=== PATIENT | male | born 1990 | race Two or more races ===

== ENCOUNTER 2024-11-21 09:25 | Day surgery (SDC) | payer BC, SELFPAY ==
[2024-11-15 09:50] VITALS: BMI 28.5
[2024-11-15 10:54] LABS: Basophils % (Auto) 1 % (0-2.5); Eosinophils # (Auto) 0.1 Thou/mm3 (0.0-0.5); Eosinophils % (Auto) 1 % (0-10); Hematocrit 41.4 % (41.0-53.0); Hemoglobin 14.6 g/dL (13.5-16.0); Immature Granulocytes % (Auto) 0 % (0-0); Immature Granulocytes Auto 0.02 Thou/mm3 (0.00-0.00); Lymphocytes % (Auto) 25 % (10-50); Mean Corpuscular HGB Conc 35.3 g/dl (31.0-37.0); Mean Corpuscular Volume 88 fL (80-100); Monocytes # (Auto) 0.9 Thou/mm3 (0.0-0.8); Monocytes % (Auto) 12 % (0-12); Neutrophils # (Auto) 4.9 Thou/mm3 (1.8-7.7); Neutrophils % (Auto) 62 % (37-80); Nucleated Red Blood Cell % 0 /100 WBC (0); Platelet Count 305 Thou/mm3 (140-440); RDW Standard Deviation 39.1 fL (35.1-43.9); Red Blood Count 4.71 Miln/mm3 (4.50-5.90); White Blood Count 7.9 Thou/mm3 (3.8-10.6)
[2024-11-15 11:08] LABS: Anion Gap 8 (7-16); BUN/Creatinine Ratio 10 Ratio (12-20); Blood Urea Nitrogen 10 mg/dL (9-23); Calcium 10.2 mg/dL (8.3-10.6); Carbon Dioxide 28.3 mMol/L (20.0-31.0); Chloride 106 mMol/L (98-107); Estimated Creatinine Clearance 118.7 mL/min (>60); Glucose 104 mg/dL (74-106); Osmolality,Calculated 282 (275-295); Potassium 4.3 mMol/L (3.4-5.1); Sodium 142 mMol/L (136-145); eGFR > 60 See Note
--- NOTE | 2024-11-20 14:27 | SUR.PREOP ---
Pt notified to come in at 1000 tomorrow for surgery.
[2024-11-21] VITALS (7 sets, daily range): BP systolic 108–146; BP diastolic 71–99; PULSE 55–84; RESP 10–17; TEMP 36.3–37.1; O2SAT 96–99; BMI 28.0
[2024-11-21] MEDS: RINGERS LACTATED 1000 ML 1,000 ML 20 ML IV (10:29)
--- NOTE | 2024-11-21 10:45 | CHAP ---
Visited with patient and spouse and gave encouragement and prayer.
--- NOTE | 2024-11-21 12:42 | SUR.PHASEI ---
pt received to [facility]. oral airway removed by dr sánchez on arrival. vss. breathing even and unlabored. dressing cdi. arousable with stimulation. denies pain and nausea. report from dr sánchez and nurse concepcion.
--- NOTE | 2024-11-21 13:00 | SUR.PHASEI ---
assumed care of pt at this time. pt awake and alert, breathing unlabored on room air. v/s stable. pt dressing to abd cdi.
--- NOTE | 2024-11-21 13:00 | SUR.PHASEI ---
report to nurse ana. pt awake alert, oriented and eating ice chips. dressing remains cdi. vss. breathing even and unlabored.
--- NOTE | 2024-11-21 13:18 | SUR.PHASEII ---
pt able to tolerate oral fluids without difficulty swallowing or nausea/vomiting.
--- NOTE | 2024-11-21 13:24 | ESOP_ITS ---
Date of Procedure 11/21/24 Pre Op Diagnosis Incarcerated left inguinal hernia Post Op Diagnosis Incarcerated indirect left inguinal hernia Procedure Left inguinal hernia repair with mesh Findings Patient was noted to have an indirect left inguinal hernia with incarcerated omentum Procedure Description Patient brought into the operating room in supine position. After administration of general endotracheal anesthesia, patient's left groin was shaved, prepped and draped in standard surgical manner. The left inguinal crease was anesthetized with half percent Marcaine. An approximately 6 cm incision was made and dissection was carried to subcutaneous tissue. The Lily's fascia was divided and the external oblique aponeurosis was opened towards the external ring. The hernia sac and the spermatic cord structures were from the posterior aspect of the external oblique aponeurosis at the level of pubic tubercle. The hernia sac was then meticulously dissected off the spermatic cord structures at the level of internal ring. The hernia sac was opened and the contents that were incarcerated omentum, reduced. The hernia sac was then ligated at the level of internal ring. The floor of inguinal canal was then reconstructed with ultra Pro proceed mesh. The mesh was secured with running 2-0 Prolene suture. The mesh secured medially to the pubic tubercle, superiorly into the conjoin tendon, inferiorly and to the shelving edge of inguinal ligament, the mesh was placed around the cord structures and tacked under the external oblique aponeurosis laterally. The area was copiously and thoroughly washed and irrigated, all the fluids were suctioned and the suction fluid returned clear. Hemostasis was adequate and satisfactory. External oblique aponeurosis was closed with running 2-0 Vicryl suture, and Lily's fascia was closed with interrupted suture using 3-0 Vicryl. The incision was closed with 4-0 Monocryl in subcutaneous fashion. Instruments, needles and sponge counts were reported to be correct ?2. Patient tolerated the procedure well. He was extubated, breathing spontaneously and without difficulty and was transferred to postanesthesia care in stable condition. Anesthesia GETA and local Pathology / specimen Other (Hernia sac) Estimated Blood Loss 10 Condition Stable Disposition PACU Surgeon Erin Cole MD Surgical Staff Operation Date: 11/21/24 12:15 Case Staff Anesthesiologist: Du Garcia RNassistant press operator: Ladonna Aiken
--- NOTE | 2024-11-21 13:50 | SUR.PHASEII ---
pt awake and alert, breathing unlabored on room air. v/s stable. pt dressing to lower left abd cdi. abd binder in place. pt able to ambualte to wheelchair with steady gait. d/c instructions given with in room, all questions answered. pt d/c via wheelchair with all belongings.
== END 2024-11-21 13:50 | disposition home or self-care (01) ==
PROVIDERS: PCP Family Medicine; Referring Provider Surgery; Visit Provider Surgery
PROC: (CPT 49507; principal; 2024-11-21 12:15)
DX: K40.30 Unilateral inguinal hernia, with obstruction, without gangrene, not specified as recurrent (principal)
CPT/HCPCS: 49507; 36415; 80048; 85025; A4217; A4649; C1781; J0131; J0690; J1100; J2250; J2704; J2710; J2765; J3010; J3490; J7120; J1596